=== PATIENT | female | born 1980 | race Two or more races ===

== ENCOUNTER → 2023-03-11 | Outpatient (CLI) | payer SELFPAY ==
[2023-03-15 11:20] LABS: HSV Culture Without Typing NEGATIVE (.)
== END | disposition home or self-care (01) ==
PROVIDERS: Visit Provider Nurse Practitioner Women's Health
DX: Z11.3 Encounter for screening for infections with a predominantly sexual mode of transmission (principal)
CPT/HCPCS: 87255

== ENCOUNTER → 2024-08-31 | Outpatient (CLI) | payer SELFPAY ==
--- NOTE | 2024-08-31 16:10 | RAD_ITS ---
STUDY: X-RAY CHEST REASON FOR EXAM: Female, 44 years old. Fever and cough TECHNIQUE: Single AP portable view of the chest. COMPARISON: None. FINDINGS: No plain film evidence of acute or latent TB The lungs are clear and expanded. There is no demonstrated pleural abnormality. Normal size heart. Normal mediastinum and leti. Normal visualized pulmonary arteries. Normal visualized aortic arch and descending thoracic aorta. Normal visualized thoracic spine. Normal visualized ribs, clavicles, and shoulders. There is no demonstrated abnormality of the visualized soft tissue structures of the upper abdomen. RAD/Chest 1 View IMPRESSION: Normal x-ray examination of the chest. Electronically Signed: Gerald De Souza MD at 17:24 EST ,
== END | disposition home or self-care (01) ==
DX: Z11.1 Encounter for screening for respiratory tuberculosis (principal)
CPT/HCPCS: 71045